=== PATIENT | female | born 1975 | race Caucasian/White ===

== ENCOUNTER 2016-05-04 10:03 | Emergency (ER) | payer MEDICAID ==
[2016-05-04] MEDS ORDERED: KETOROLAC 60 MG/2 ML VIAL IM STA (10:33)
--- NOTE | 2016-05-04 10:50 | ED ---
General Adult HPI - General Chief complaint: Fall Stated complaint: Fell/injury tailbone Time Seen by Provider: 05/04/16 10:15 Source: patient, RN notes reviewed Mode of arrival: ambulatory Limitations: no limitations - History of Present Illness Initial comments: This is a 40-year-old female who presents emergency Department complaining of tailbone pain. Patient states she slipped on the stairs and landed on her tailbone and ever since it very difficult to walk or have a bowel movement because it hurt so much. Patient denies any lower back or upper back pain. Patient denies any other injury at this time. Patient denies any sites of bleeding. Patient denied being dizzy lightheaded or having any near syncopal episode. Patient denies any chest pain difficulty breathing or shortness of breath. Patient denied palpitations. - Related Data Home Medications Medication Instructions Recorded Confirmed Ibuprofen [Motrin] 600 mg PO Q6H PRN 05/04/16 05/04/16 Previous Rx's Medication Instructions Recorded Hydrocodone/Acetaminophen [[place] 1 each PO Q4HR PRN #20 tab 05/04/16 5-325] Allergies Allergy/AdvReac Type Severity Reaction Status Date / Time No Known Allergies Allergy Verified 05/04/16 10:38 Review of Systems ROS Statement: Those systems with pertinent positive or pertinent negative responses have been documented in the HPI. ROS Other: All systems not noted in ROS Statement are negative. Past Medical History Past Medical History: No Reported History History of Any Multi-Drug Resistant Organisms: None Reported Past Surgical History: Hysterectomy, Orthopedic Surgery, Tubal Ligation Past Psychological History: No Psychological Hx Reported Smoking Status: Never smoker Past Alcohol Use History: None Reported Past Drug Use History: None Reported General Exam - General Exam Comments Initial Comments: GENERAL Patient is well-developed and well-nourished. Patient is in mild distress. EYES Patient's pupils are equal and round. Extraocular motion is intact SKIN Unremarkable NEURO The patient is alert and oriented 3 PYSCH Patient has normal interpersonal interactions. MUSCULOSKELETAL Patient's tailbone is tender to palpation. Lower back is no palpable tenderness. Patient has no numbness or weakness. Patient has full range of motion of both legs but does cause some pain in the region of her coccyx Limitations: no limitations Course Vital Signs 05/04/16 10:12 Temperature 99.4 F Pulse Rate 92 Respiratory 18 Rate Blood Pressure 129/69 O2 Sat by Pulse 94 L Oximetry Medical Decision Making - Medical Decision Making Patient's x-ray of the sacrum and coccyx showed no obvious fracture Disposition Clinical Impression: Coccyx contusion Disposition: HOME SELF-CARE Instructions: Contusion in Adults (ED) Prescriptions: Hydrocodone/Acetaminophen [[place] 5-325] 1 each PO Q4HR PRN #20 tab PRN Reason: Pain Referrals: None,Stated [Primary Care Provider] - 1-2 days Time of Disposition: 11:37
--- NOTE | 2016-05-04 11:23 | XR ---
Sacrum and coccyx HISTORY: Pain after fall 3 views of the sacrum and coccyx Bone mineralization is maintained. Some sacralization of L5 is suspected. Alignment is normal. Probab le phleboliths within the pelvis. IMPRESSION: No fracture or dislocation. CT or MRI may been increased sensitivity.
[2016-05-04 12:04] VITALS: BP 109/73; PULSE 83; RESP 16; TEMP 98.8
== END 2016-05-04 12:04 | disposition home or self-care (01) ==
LOC: EC 10:03
DX: S30.0XXA Contusion of lower back and pelvis, initial encounter (principal); W10.9XXA Fall (on) (from) unspecified stairs and steps, initial encounter
CPT/HCPCS: 72220; 99284; 96372; J1885

== ENCOUNTER → 2019-06-01 | Outpatient (CLI) | payer BC ==
--- NOTE | 2019-06-01 10:23 | MM ---
Reason for exam: screening (asymptomatic). Baseline mammogram. History: Took hormonal contraceptives for 1 year beginning at age 20. Physical Findings: Nurse did not find any significant physical abnormalities on exam. MG 3D Screening Mammo W/Cad Bilateral CC and MLO view(s) were taken. There are scattered fibroglandular densities. There is no discrete abnormality. These results were verbally communicated with the patient and result sheet given to the patient on 06/01/19. ASSESSMENT: Negative, BI-RAD 1 RECOMMENDATION: Routine screening mammogram of both breasts in 1 year.
== END | disposition home or self-care (01) ==
LOC: RADMAMWWP 08:12
PROVIDERS: ATTEND Family Medicine
DX: Z12.39 Encounter for other screening for malignant neoplasm of breast (principal)
CPT/HCPCS: 77063; 77067

== ENCOUNTER → 2020-09-26 | Outpatient (CLI) | payer BC ==
--- NOTE | 2020-10-01 13:18 | MM ---
Reason for exam: screening (asymptomatic). Last mammogram was performed 1 year and 4 months ago. History: Took hormonal contraceptives for 1 year beginning at age 20. Physical Findings: A clinical breast exam by your physician is recommended on an annual basis and results should be correlated with mammographic findings. MG Screening Mammo w CAD Bilateral CC and MLO view(s) were taken. Prior study comparison: June 01, 2019, bilateral MG 3d screening mammo w/cad. There are scattered fibroglandular densities. ASSESSMENT: Negative, BI-RAD 1 RECOMMENDATION: Routine screening mammogram of both breasts in 1 year.
== END | disposition home or self-care (01) ==
LOC: RADMAMWWP 07:07
PROVIDERS: ATTEND Family Medicine
DX: Z12.31 Encounter for screening mammogram for malignant neoplasm of breast (principal)
CPT/HCPCS: 77067

== ENCOUNTER → 2021-09-10 | Day surgery (SDC) | payer BC ==
[2021-09-08 16:09] VITALS: BMI 42.5
[~2021-09-10] MED LIST: LACTATED RINGERS 1,000 ML IV SCH; LIDOCAINE 1% (10MG/ML) FOR IV START INTRADERMA ONE; LIDOCAINE 2% INJ 20 MG/ML (2 ML VIAL) ONE; PROPOFOL 10 MG/ML 20 ML VIAL IV ONE
[2021-09-10 10:51] VITALS: BP 119/69; PULSE 75; RESP 16; TEMP 97.5
--- NOTE | 2021-09-10 14:42 | P.PCN ---
Date of Procedure: 09/10/21 Procedure(s) Performed: BRIEF HISTORY: Patient is a 46-year-old, pleasant, male scheduled for an upper endoscopy as a part of evaluation of long-standing history of GERD of almost 3-4 years duration.. PROCEDURE PERFORMED: Esophagogastroduodenoscopy with biopsy. PREOPERATIVE DIAGNOSIS: Long-standing history of GERD. IV sedation per anesthesia. PROCEDURE: After informed consent was obtained, the patient was brought into the endoscopy unit. IV sedation was administered by Anesthesia under continuous monitoring. Initially the Olympus GIF-140 video endoscope was inserted into the mouth. Esophagus intubated without any difficulty. It was gradually advanced into the stomach and duodenum and carefully examined. The bulb and the second part of the duodenum appeared normal. Biopsies were done from the duodenum to rule out celiac disease. The scope at this time was withdrawn to the stomach, adequately insufflated with air, and upon careful examination, mucosa of the antrum, had minimal gastritis and biopsies were done from this area. The body, cardia and the fundus appeared normal. The scope was then withdrawn into the esophagus. The GE junction was located at 39 cm from the incisors. There were linear erosions in the distal esophagus consistent with LA grade B reflux esophagitis. The rest of the esophagus appeared normal. Biopsies were done from the distal esophagus and the patient tolerated the procedure well. IMPRESSION: 1. Mild antral gastritis. 2. Linear superficial erosions in the distal esophagus consistent with LA grade B reflux esophagitis. RECOMMENDATIONS: The findings of this examination were discussed with the patient as well as her family. She was advised to follow with the biopsy results. She will start with omeprazole 20 mg daily half hour before breakfast and follow antireflux measures
== END ==
LOC: ORWHC2ENDO 10:02
PROVIDERS: ATTEND Internal Medicine Gastroenterology
DX: K29.50 Unspecified chronic gastritis without bleeding (principal); K21.00 Gastro-esophageal reflux disease with esophagitis, without bleeding
CPT/HCPCS: 43239; 88305; J2704; J2001

== ENCOUNTER → 2021-10-02 | Outpatient (CLI) | payer BC ==
--- NOTE | 2021-10-06 09:38 | MM ---
Reason for Exam: Screening (asymptomatic). Last screening mammogram was performed 12 month(s) ago. Patient History: Menarche at age 16. First Full-Term at age 23. Hysterectomy at age 31. Hormonal Contraceptives for 1 year from age 20 until age 21. Risk Values: Reta 5 year model risk: 0.6%. NCI Lifetime model risk: 8.0%. Prior Study Comparison: 06/01/2019 Bilateral Screening Mammogram, [facility]. 09/26/2020 Bilateral Screening Mammogram, [facility]. Tissue Density: There are scattered fibroglandular densities. Findings: Analyzed By CAD. No suspicious groups of microcalcifications, spiculated or lobular masses, architectural distortion or other secondary signs of malignancy are mammographically apparent. Overall Assessment: Negative, BI-RAD 1 Management: Screening Mammogram of both breasts in 1 year. A negative mammogram report should not preclude additional follow up of suspicious palpable abnormalities. Patient should continue monthly self breast exam. A clinical breast exam by your physician is recommended on an annual basis and results should be correlated with mammographic findings. Electronically signed and approved by: Hi Banerjee D.O. Radiologis
== END | disposition home or self-care (01) ==
LOC: RADMAMWWP 07:32
PROVIDERS: ATTEND Family Medicine
DX: Z12.31 Encounter for screening mammogram for malignant neoplasm of breast (principal)
CPT/HCPCS: 77063; 77067

== ENCOUNTER → 2022-07-12 | Outpatient (CLI) | payer BC ==
--- NOTE | 2022-07-13 08:10 | MR ---
EXAMINATION TYPE: MR ankle RT wo con DATE OF EXAM: 07/12/2022 COMPARISON: None. HISTORY: Right ankle pain x 4 mos., no hx of trauma. Sprain of the deltoid ligament per order. Standard multiplanar, multisequence MRI departmental protocol Multiplanar, multisequence images of the right ankle were acquired without contrast. FINDINGS: Distal Achilles tendon is intact. There is moderate size inferior calcaneal spur. Visualize d plantar fascia otherwise unremarkable. Normal sinus tarsi fat is seen. There are ovoid T2 hyperintense lesions in the base of the second metatarsal suspect subchondral cyst . No suspicious increased T2 signal or osseous edema is present. Ankle mortise symmetry is preserved. Subtalar joint is maintained. Talar dome is intact. Small presumed physiologic posterior tibiotalar joint effusion. The anterior tibiofibular and the anterior talofibular ligaments are intact. Posterior syndesmosis is intact. Medial deltoid ligament intact. Some increased signal and thickening is seen. The peroneal tendons have some surrounding fluid level of the anterior calcaneus and there is focal p artial parallel to their sagittal image 10 measuring 12 mm in length along course of the peroneal david fatuma tendon. There is more prominent fluid signal surrounding the flexor tendons along the posterior m edial aspect of the ankle. The PTT shows marked thickening and areas of increased signal with a remna nt os naviculare. There is some increased signal and thickening of the adjacent spring ligament seen best on coronal images. Mild narrowing in the mid foot joints is present. No significant spurring is seen. No significant sub cutaneous edema. IMPRESSION: 1. Grade 1 or 2 deltoid injury is present. 2. There is more prominent. PTT tendinopathy and tenosynovitis and adjacent thickening of the spring ligament. 3. Partial tearing of the PL tendon noted as detailed above.
== END | disposition home or self-care (01) ==
LOC: RADMRIMAIN 06:08
PROVIDERS: ATTEND Podiatrist Foot & Ankle Surgery
DX: S93.421D Sprain of deltoid ligament of right ankle, subsequent encounter (principal); M65.871 Other synovitis and tenosynovitis, right ankle and foot

== ENCOUNTER → 2023-04-12 | Outpatient (CLI) | payer BC ==
--- NOTE | 2023-04-13 12:28 | MM ---
Reason for Exam: Screening (asymptomatic). Last mammogram was performed 1 year(s) and 6 month(s) ago. Patient History: Menarche at age 16. First Full-Term at age 23. Hysterectomy at age 31. Hormonal Contraceptives for 1 year from age 20 until age 21. Risk Values: Reta 5 year model risk: 0.7%. NCI Lifetime model risk: 7.9%. Prior Study Comparison: 06/01/2019 Bilateral Screening Mammogram, [facility]. 09/26/2020 Bilateral Screening Mammogram, [facility]. 10/02/2021 Bilateral MG 3D screening mammo w/cad, [facility]. Tissue Density: The breast tissue is almost entirely fat. Findings: Analyzed By CAD. There is no suspicious group of microcalcifications or new suspicious mass. Overall Assessment: Negative, BI-RAD 1 Management: Screening Mammogram of both breasts in [address] [facility] will attempt to contact patient to return for supplemental views and ultrasound if indicated. Patient should continue monthly self-breast exams. A clinical breast exam by your physician is recommended on an annual basis. This exam should not preclude additional follow-up of suspicious palpable abnormalities. Note on Reta scores and lifetime risk: 1. A Reta score greater than 3% is considered moderate risk. If this is the case, consider specialist referral to assess eligibility for a risk reducing agent. 2. If overall lifetime risk for the development of breast cancer is 20% or higher, the patient may qualify for future screening with alternating mammogram and breast MRI. Electronically signed and approved by: Reymundo Siu DO
== END | disposition home or self-care (01) ==
LOC: RADMAMWWP 10:45
PROVIDERS: ATTEND Family Medicine
DX: Z12.31 Encounter for screening mammogram for malignant neoplasm of breast (principal)
CPT/HCPCS: 77063; 77067

== ENCOUNTER → 2024-04-13 | Outpatient (CLI) | payer BC ==
--- NOTE | 2024-04-19 16:31 | MM ---
Reason for Exam: Screening (asymptomatic). Last screening mammogram was performed 12 month(s) ago. Patient History: Menarche at age 16. First Full-Term at age 23. Hysterectomy at age 31. Hormonal Contraceptives for 1 year from age 20 until age 21. Risk Values: Reta 5 year model risk: 0.7%. NCI Lifetime model risk: 7.8%. Prior Study Comparison: 09/26/2020 Bilateral Screening Mammogram, [facility]. 10/02/2021 Bilateral MG 3D screening mammo w/cad, [facility]. 04/12/2023 Bilateral MG 3D screening mammo w/cad, [facility]. Tissue Density: There are scattered areas of fibroglandular density. Findings: Analyzed By CAD. There is no suspicious group of microcalcifications or new suspicious mass in either breast. Overall Assessment: Negative, BI-RAD 1 Management: Screening Mammogram of both breasts in 1 year. . Patient should continue monthly self-breast exams. A clinical breast exam by your physician is recommended on an annual basis. This exam should not preclude additional follow-up of suspicious palpable abnormalities. Note on Reta scores and lifetime risk: 1. A Reta score greater than 3% is considered moderate risk. If this is the case, consider specialist referral to assess eligibility for a risk reducing agent. 2. If overall lifetime risk for the development of breast cancer is 20% or higher, the patient may qualify for future screening with alternating mammogram and breast MRI. [facility], , 04/19/2024 4:28 PM. Electronically signed and approved by: Bridger Weiss M.D. Radiologist
== END | disposition home or self-care (01) ==
LOC: RADMAMWWP 08:44
PROVIDERS: ATTEND Family Medicine
DX: Z12.31 Encounter for screening mammogram for malignant neoplasm of breast (principal); R92.323 Mammographic fibroglandular density, bilateral breasts
CPT/HCPCS: 77063; 77067